=== PATIENT | female | born 1975 | race Two or more races ===

== ENCOUNTER 2018-11-12 12:59 | Day surgery (SDC) | payer OTHER, MEDICAID ==
[2018-11-12] MEDS ORDERED: PROPOFOL 60 ML (16:38)
== END 2018-11-12 19:26 | disposition home or self-care (01) ==
LOC: GIL 12:59
DX: K92.1 Melena (principal); K64.8 Other hemorrhoids; K44.9 Diaphragmatic hernia without obstruction or gangrene
CPT/HCPCS: 43239; 84703; 88305; 88312